=== PATIENT | female | born 1950 | race Caucasian/White ===

== ENCOUNTER 2018-06-19 11:17 | Emergency (ER) | payer MEDICARE, BC ==
[2018-06-19] MEDS ORDERED: Acetaminophen 325 MG Tab ONE (11:31)
[2018-06-19] MEDS ORDERED: Sodium Chloride 0.9% 2,000 ML ONE (11:31)
[2018-06-19] MEDS ORDERED: Sodium Chloride 0.9% 500 ML IV ONE (11:36)
[2018-06-19] MEDS ORDERED: Sodium Chloride 0.9% 1,000 ML IV ONE (11:36)
--- NOTE | 2018-06-19 11:47 | EDM.PDOC ---
ED HPI GENERAL MEDICAL PROBLEM - General Chief Complaint: Fever Stated Complaint: [facility] Time Seen by Provider: 06/19/18 11:30 Source of Information: Reports: Patient, EMS, EMS Notes Reviewed History Limitations: Reports: No Limitations - History of Present Illness INITIAL COMMENTS - FREE TEXT/NARRATIVE: Patient is a 67-year-old female who presents to the ED with concerns of fever with altered mental status per her . EMS was contacted and found the patient to be tachycardic alert with a fever 104F. Upon admission to the emergency room patient is alert oriented and complains of a cough that is productive with intermittent chest pain and abdominal discomfort. Patient has a cholecystostomy tube in place. The tube was placed at [facility] in [place] by Dr. Rhodes. Patient states up until the last few days she 's been doing quite well. She has developed this cough that is productive with some intermittent shortness of breath. Pain to the chest is sharp in nature with coughing. She denies any shortness of breath at rest although she is on oxygen currently. She has a history of stage IV non-Hodgkin's lymphoma initially diagnosed in 2006. Status post radiation therapy in March and April 2017 and chemotherapy through 12/08/2017. Patient with review previous records had pneumonia 02/13/2018 right sided. She was admitted to the hospital through February 27, 2018. She has received a flu vaccination. She sees Dr. Leo [facility] for oncology purposes. She currently denies any nausea or vomiting, constipation, dysuria, rash, dizziness, bloody stool, dark tarry stool, and or diarrhea. She has not been around anybody sick recently. Chest Pain Score (Numeric/FACES): 5 - Related Data Allergies Allergy/AdvReac Type Severity Reaction Status Date / Time No Known Allergies Allergy Verified 06/19/18 11:28 Home Meds: Home Meds Calcium Carbonate/Vitamin D3 [Calcium Carbonate/Vitamin D 1250 MG-200 Unit] 1 tab PO BID 12/15/17 [History] Denosumab [Prolia] 1 injection SUBCUT ASDIRECTED 12/15/17 [History] Folic Acid 1 mg PO DAILY 12/15/17 [History] Gabapentin [Neurontin] 300 mg PO TID 12/15/17 [History] [place]-3/DHA/Epa/Fish Oil [[place] 3 500 Softgel] 3 cap PO DAILY 12/15/17 [History] Omeprazole Magnesium [Prilosec] 20 mg PO DAILY 12/15/17 [History] Ondansetron [Zofran ODT] 8 mg PO Q6HR 12/15/17 [History] Potassium Chloride 20 meq PO DAILY 12/15/17 [History] Promethazine [Phenergan] 0.5 ml TOP Q6HR PRN 12/15/17 [History] Ranitidine [Zantac] 150 mg PO BID 12/15/17 [History] Zolpidem [Ambien] 10 mg PO QPM PRN 12/15/17 [History] oxyCODONE HCl/Acetaminophen [oxyCODONE-Acetaminophen 2.5-325] 1 tab PO Q4HR PRN 12/15/17 [History] predniSONE [Prednisone] 5 mg PO MOWEFR 12/15/17 [History] Bisacodyl 10 mg RC BID PRN #6 supp.rect 12/22/17 [Rx] Docusate Sodium [Colace] 100 mg PO BID PRN #60 cap 12/22/17 [Rx] Dronabinol [Marinol] 2.5 mg PO TIDAC #90 cap 12/22/17 [Rx] Polyethylene Glycol 3350 [MiraLAX] 17 gm PO BID PRN #10 packet 12/22/17 [Rx] Scopolamine [Transderm-Scop] 1.5 mg TRDERM Q72H PRN #5 patch 12/22/17 [Rx] fentaNYL [Duragesic] 12 mcg TRDERM Q72H #5 patch 12/22/17 [Rx] Past Medical History HEENT History: Reports: Impaired Vision Other HEENT History: Wears glasses Respiratory History: Reports: Pneumonia, Recurrent Gastrointestinal History: Reports: GERD, Hiatal Hernia [employer] History: Reports: Musculoskeletal History: Reports: Osteoporosis, RA Neurological History: Reports: Other (See Below) (Postherpetic neuralgia) Hematologic History: Reports: Blood Transfusion(s), Other (See Below) (Factor V Leiden mutation) Oncologic (Cancer) History: Reports: Basal Cell Carcinoma (skin), Non-Hodgkin's Lymphoma (Stage IV, dx'd 2006) Dermatologic History: Reports: Melanoma - Past Surgical History HEENT Surgical History: Reports: Cataract Surgery, Tonsillectomy Cardiovascular Surgical History: Reports: Vascular Surgery (Left Port-A-Cath) Oncologic Surgical History: Reports: Biopsy of Breast (right, benign), Other ( See Below) (Right lymph node bx) Social & Family History - Family History Family Medical History: Noncontributory - Caffeine Use Caffeine Use: Reports: None - Living Situation & Occupation Living situation: Reports: , with Spouse Occupation: Retired ED ROS GENERAL - Review of Systems Review Of Systems: ROS reveals no pertinent complaints other than HPI. - Physical Exam Exam: See Below Exam Limited By: No Limitations General Appearance: Alert, WD/WN, No Apparent Distress, Cachetic Eye Exam: Bilateral Eye: Normal Inspection, PERRL Ears: Hearing Grossly Normal Nose: Normal Inspection Throat/Mouth: Normal Inspection, Normal Oropharynx, Normal Voice, No Airway Compromise Head Exam: Atraumatic, Normocephalic Neck: Normal Inspection, Supple Respiratory/Chest: No Respiratory Distress, No Accessory Muscle Use, Chest Non- Tender, Rhonchi (To bases bilaterally) Cardiovascular: Normal Peripheral Pulses, Tachycardia GI/Abdominal: Normal Bowel Sounds, Soft, No Organomegaly, No Distention, Other ( Cholecystostomy tube right upper quadrant intact draining yellow/greenish fluid. ) Neuro Exam (Abbreviated): Alert, Oriented, CN II-XII Intact, Normal Cognition, No Motor/Sensory Deficits Back Exam: Normal Inspection Extremities: Normal Inspection Psychiatric: Normal Affect, Normal Mood Skin Exam: Dry, Intact, Increased Warmth Course - Vital Signs Last Recorded V/S: Last Vital Signs Temp 104 F H 06/19/18 11:41 Pulse 140 H 06/19/18 11:19 Resp 18 06/19/18 11:19 BP 104/68 06/19/18 11:19 Pulse Ox 97 06/19/18 11:19 - Orders/Labs/Meds Orders: Active Orders 24 hr Category Date Time Status EKG 12 Lead [EKG Documentation Completion] [RC] STAT Care 06/19/18 11:34 Active Abdomen 1V Flat [CR] Stat Exams 06/19/18 11:34 Taken Chest 1V Frontal [CR] Stat Exams 06/19/18 11:34 Taken CULTURE BLOOD [BC] Stat Lab 06/19/18 11:43 Received CULTURE BLOOD [BC] Stat Lab 06/19/18 12:30 Received PROCALCITONIN [REF] Stat Lab 06/19/18 12:30 Received STREP PNEUMONIAE ANTIGEN [MREF] Stat Lab 06/19/18 12:10 Received Norepinephrine [Levophed] 4 mg Med 06/19/18 13:00 Active Dextrose 5% in Water 246 ml IV TITRATE Sodium Chloride 0.9% [Normal Saline] 1,000 ml Med 06/19/18 13:00 Active IV ASDIRECTED Blood Culture x2 Reflex Set [OM.PC] Stat Oth 06/19/18 11:34 Ordered Medication Orders Norepinephrine Bitartrate 4 mg (/ Dextrose/Water) 250 mls @ 11.25 mls/hr IV TITRATE DEANNE; Protocol Last Admin: 06/19/18 13:12 Dose: 3 mcg/min, 11.25 mls/hr Sodium Chloride (Normal Saline) 1,000 mls @ 999 mls/hr IV ASDIRECTED DEANNE Last Admin: 06/19/18 13:11 Dose: 999 mls/hr Labs: Laboratory Tests 06/19/18 06/19/18 06/19/18 Range/Units 12:10 12:30 12:30 WBC 0.91 L* (3.98-10.04) K/mm3 RBC 3.03 L (3.98-5.22) M/mm3 Hgb 8.5 L (11.2-15.7) gm/L Hct 26.9 L (34.1-44.9) % MCV 88.8 (79.4-94.8) fl MCH 28.1 (25.6-32.2) pg MCHC 31.6 L (32.2-35.5) g/dl RDW Std Deviation 48.7 H (36.4-46.3) fL Plt Count 222 (182-369) K/mm3 MPV 9.3 L (9.4-12.3) fl Neutrophils % (Manual) 10 L (40-60) % Band Neutrophils % 8 (0-10) % Lymphocytes % (Manual) 48 H (20-40) % Atypical Lymphs % 0 % Monocytes % (Manual) 33 H (2-10) % Eosinophils % (Manual) 0 L (0.7-5.8) % Basophils % (Manual) 0 L (0.1-1.2) Metamyelocytes % 1 Platelet Estimate Adequate Hypochromasia Moderate Microcytosis Few Macrocytosis Moderate RBC Morph Comment Not Reportable Sodium 134 L (136-145) mEq/L Potassium 3.5 (3.5-5.1) mEq/L Chloride 97 L (98-107) mEq/L Carbon Dioxide 24 (21-32) mEq/L Anion Gap 16.5 H (5-15) BUN 15 (7-18) mg/dL Creatinine 1.0 (0.55-1.02) mg/dL Est Cr Clr Drug Dosing 45.57 mL/min Estimated GFR (MDRD) 55 (>60) mL/min BUN/Creatinine Ratio 15.0 (14-18) Glucose 99 (80-115) mg/dL Lactic Acid (0.4-2.0) mmol/L Calcium 7.7 L (8.5-10.1) mg/dL Total Bilirubin 0.7 (0.2-1.0) mg/dL AST 27 (15-37) U/L ALT 15 (14-59) U/L Alkaline Phosphatase 71 (46-116) U/L Troponin I < 0.017 (0.00-0.056) ng/mL C-Reactive Protein 22.2 H* (<1.0) mg/dL Total Protein 5.4 L (6.4-8.2) g/dl Albumin 2.4 L (3.4-5.0) g/dl Globulin 3.0 gm/dL Albumin/Globulin Ratio 0.8 L (1-2) Lipase 54 L (73-393) U/L Urine Color Yellow (Yellow) Urine Appearance Clear (Clear) Urine pH 7.0 (5.0-8.0) Ur Specific [place] 1.015 (1.005-1.030) Urine Protein 2+ H (Negative) Urine Glucose (UA) Negative (Negative) Urine Ketones Negative (Negative) Urine Occult Blood 1+ H (Negative) Urine Nitrite Negative (Negative) Urine Bilirubin Negative (Negative) Urine Urobilinogen 0.2 (0.2-1.0) Ur Leukocyte Esterase Negative (Negative) Urine RBC 0-5 (0-5) /hpf Urine WBC 0-5 (0-5) /hpf Ur Epithelial Cells 0-5 (0-5) /hpf Urine Bacteria Not seen (FEW) /hpf Urine Mucus Not seen (FEW) /hpf Mycoplasma pneumon IgM Positive H (NEGATIVE) 06/19/18 Range/Units 12:30 WBC (3.98-10.04) K/mm3 RBC (3.98-5.22) M/mm3 Hgb (11.2-15.7) gm/L Hct (34.1-44.9) % MCV (79.4-94.8) fl MCH (25.6-32.2) pg MCHC (32.2-35.5) g/dl RDW Std Deviation (36.4-46.3) fL Plt Count (182-369) K/mm3 MPV (9.4-12.3) fl Neutrophils % (Manual) (40-60) % Band Neutrophils % (0-10) % Lymphocytes % (Manual) (20-40) % Atypical Lymphs % % Monocytes % (Manual) (2-10) % Eosinophils % (Manual) (0.7-5.8) % Basophils % (Manual) (0.1-1.2) Metamyelocytes % Platelet Estimate Hypochromasia Microcytosis Macrocytosis RBC Morph Comment Sodium (136-145) mEq/L Potassium (3.5-5.1) mEq/L Chloride (98-107) mEq/L Carbon Dioxide (21-32) mEq/L Anion Gap (5-15) BUN (7-18) mg/dL Creatinine (0.55-1.02) mg/dL Est Cr Clr Drug Dosing mL/min Estimated GFR (MDRD) (>60) mL/min BUN/Creatinine Ratio (14-18) Glucose (80-115) mg/dL Lactic Acid 1.2 (0.4-2.0) mmol/L Calcium (8.5-10.1) mg/dL Total Bilirubin (0.2-1.0) mg/dL AST (15-37) U/L ALT (14-59) U/L Alkaline Phosphatase (46-116) U/L Troponin I (0.00-0.056) ng/mL C-Reactive Protein (<1.0) mg/dL Total Protein (6.4-8.2) g/dl Albumin (3.4-5.0) g/dl Globulin gm/dL Albumin/Globulin Ratio (1-2) Lipase (73-393) U/L Urine Color (Yellow) Urine Appearance (Clear) Urine pH (5.0-8.0) Ur Specific [place] (1.005-1.030) Urine Protein (Negative) Urine Glucose (UA) (Negative) Urine Ketones (Negative) Urine Occult Blood (Negative) Urine Nitrite (Negative) Urine Bilirubin (Negative) Urine Urobilinogen (0.2-1.0) Ur Leukocyte Esterase (Negative) Urine RBC (0-5) /hpf Urine WBC (0-5) /hpf Ur Epithelial Cells (0-5) /hpf Urine Bacteria (FEW) /hpf Urine Mucus (FEW) /hpf Mycoplasma pneumon IgM (NEGATIVE) Meds: Medications Generic Name Dose Route Start Last Admin Trade Name Freq PRN Reason Stop Dose Admin Norepinephrine Bitartrate 4 mg 250 mls @ 11.25 mls/hr 06/19/18 13:00 13:12 / Dextrose/Water IV 3 mcg/min TITRATE DEANNE 11.25 mls/hr Administration Protocol 3 MCG/MIN Sodium Chloride 1,000 mls @ 999 mls/hr 06/19/18 13:00 06/19/18 13:11 Normal Saline IV 999 mls/hr ASDIRECTED DEANNE Administration Discontinued Medications Generic Name Dose Route Start Last Admin Trade Name Freq PRN Reason Stop Dose Admin Acetaminophen Confirm 06/19/18 11:31 06/19/18 11:41 Tylenol Administered 06/19/18 11:32 975 mg Dose Administration 975 mg .ROUTE .STK-MED ONE Sodium Chloride Confirm 06/19/18 11:31 06/19/18 12:19 Normal Saline Administered 06/19/18 11:32 Not Given Dose 2,000 mls @ as directed .ROUTE .STK-MED ONE Sodium Chloride 1,000 mls @ 999 mls/hr 06/19/18 11:36 06/19/18 11:41 Normal Saline IV 06/19/18 12:36 999 mls/hr ONETIME ONE Administration Sodium Chloride 500 mls @ 250 mls/hr 06/19/18 11:36 06/19/18 15:09 Normal Saline IV 06/19/18 13:35 250 mls/hr .BOLUS ONE Administration Piperacillin Sod/Tazobactam 100 mls @ 200 mls/hr 06/19/18 12:54 06/19/18 13: 19 Sod 4.5 gm/ Sodium Chloride IV 06/19/18 13:23 200 mls/hr ONETIME ONE Administration Vancomycin HCl 1 gm/ Sodium 250 mls @ 250 mls/hr 06/19/18 13:30 06/19/18 14: 04 Chloride IV 06/19/18 14:29 250 mls/hr ONETIME ONE Administration Sodium Chloride Confirm 06/19/18 13:10 06/19/18 13:40 Normal Saline Administered 06/19/18 13:11 Not Given Dose 100 mls @ as directed .ROUTE .STK-MED ONE Vancomycin HCl 0 dose 06/19/18 13:00 Pharmacy To Dose - Vancomycin .XX 06/19/18 14:00 ASDIRECTED [facility] - Re-Assessments/Exams Free Text/Narrative Re-Assessment/Exam: Upon examination patient is alert and she is oriented 3. Blood pressure 104/68 , heart rate 135, temperature 104.3 rectally, respiratory rate 16. Patient meets SIRs criteria suspected cause of infection is either pneumonia or ascending cholangitis. Full septic workup has been initiated. With blood cultures 2, lactic acid, lab work, UA, chest x-ray, abdominal x-ray, EKG, and troponin. Medical records recently obtained from [facility]. Discharge summary from June 10, 2018. Patient had thought to have acalculus cholecystitis thus cholecystomy tube was placed. On followup it was noticed that she was having a lot of drainage from the cholecystostomy tube. They had concerns the patient had obstruction of the bile duct. 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 The common bile duct could not be cannulated. Since patient spent a lot of time down in the procedure she was admitted for observation. Chest x-ray indicated right lower/middle lobe pneumonia. Waiting for labs to come back to initiate antibiotic therapy. Abdominal xray indicated cholecystomy tube in place unclear if proper position or not. Images Reviewed with Dr. Sharma agrees with findings on x-ray of the chest and abdominal x-ray. EKG sinus tachycardia at 117. Per who is present states patient is a full code. He request patient be transferred back to [facility] and [place] since that's where she gets majority of her care. Labs reviewed: White blood cell count 0.91, hemoglobin 8.5 stable, platelet count 222, neutrophils 10, bands 8, lymphocytes percentage 48, monocyte percentage 33, sodium 134, potassium 3.5, CO2 24, AG 16.5, creatinine 1.0, glucose 99, lactic acid 1.2, troponin normal, CRP 22.2, lipase 54. UA indicated protein 2+, occult blood 1+, no findings concerning for infection. Mycoplasma pneumonia positive. 06/19/18 12:52 Reassessment, blood pressure 81/46 with a heart rate 117. Second IV bag of saline has been started. In addition will start Levophed 3 mcq a minute. I have ordered Zosyn and vancomycin to pharmacy to dose. 06/19/18 13:28 Second liter of IV fluids are in. Patient's heart rate 107 blood pressure has been ranging from 89/50-98 systolic.Map of 62. 1350 reassessment, patient is alert and oriented 3. She denies any complaints. Blood pressure 95/58 with a heart rate of 104. SPO2 97% on L/m of O2 via in as a cannula. I have offered to transfer the patient to [place]. Patient is adamant about staying here in the [facility]. I have informed the patient and family members that I would need to speak with Dr. Tse who will be the accepting hospitalist. 06/19/18 13:[address] Tse plastics seasoner operator hospitalists. He will see the patient in the E.D. Dr. Tse has spoken with the family. Family and patient requests transfer to [place]. I have asked for levophed to be titrated up to maintain map of 65. 06/19/[address] Braden ED provider at [facility]. He has accepted the patient. Nini has been notified. All paperwork for transfer has been completed. Departure - Departure Time of Disposition: 15:04 Disposition: DC/Tfer to Acute Hospital 02 Condition: Critical Clinical Impression: Septic shock, Severe sepsis, Immunocompromised state Pneumonia Qualifiers: Pneumonia type: due to Pseudomonas Laterality: left Lung location: unspecified part of lung Qualified Code(s): J15.1 - Pneumonia due to Pseudomonas Neutropenic Qualifiers: Neutropenia type: secondary to cancer chemotherapy Qualified Code(s): D70.1 - Agranulocytosis secondary to cancer chemotherapy - Discharge Information Referrals: Elkin Venegas MD [Primary Care Provider] - Forms: ED Department Discharge - My Orders Last 24 Hours: My Active Orders 06/19/18 11:34 EKG 12 Lead [EKG Documentation Completion] [RC] STAT Abdomen 1V Flat [CR] Stat Chest 1V Frontal [CR] Stat Blood Culture x2 Reflex Set [OM.PC] Stat 06/19/18 11:43 CULTURE BLOOD [BC] Stat 06/19/18 12:10 STREP PNEUMONIAE ANTIGEN [MREF] Stat 06/19/18 12:30 CULTURE BLOOD [BC] Stat PROCALCITONIN [REF] Stat 06/19/18 13:00 Norepinephrine [Levophed] 4 mg Dextrose 5% in Water 246 ml IV TITRATE Sodium Chloride 0.9% [Normal Saline] 1,000 ml IV ASDIRECTED - Assessment/Plan Last 24 Hours: My Active Orders 06/19/18 11:34 EKG 12 Lead [EKG Documentation Completion] [RC] STAT Abdomen 1V Flat [CR] Stat Chest 1V Frontal [CR] Stat Blood Culture x2 Reflex Set [OM.PC] Stat 06/19/18 11:43 CULTURE BLOOD [BC] Stat 06/19/18 12:10 STREP PNEUMONIAE ANTIGEN [MREF] Stat 06/19/18 12:30 CULTURE BLOOD [BC] Stat PROCALCITONIN [REF] Stat 06/19/18 13:00 Norepinephrine [Levophed] 4 mg Dextrose 5% in Water 246 ml IV TITRATE Sodium Chloride 0.9% [Normal Saline] 1,000 ml IV ASDIRECTED
[2018-06-19] MEDS ORDERED: Piperacillin/Tazobactam 4.5 GM in Sodium Chloride 0.9% 100 ML IV ONE (12:54)
[2018-06-19] MEDS ORDERED: Norepinephrine 4 MG in Dextrose 5% in Water 246 ML IV SCH ×2 (13:00)
[2018-06-19] MEDS ORDERED: Sodium Chloride 0.9% 1,000 ML IV SCH (13:00)
[2018-06-19] MEDS ORDERED: Sodium Chloride 0.9% 100 ML ONE (13:10)
--- NOTE | 2018-06-20 08:46 | CR ---
Abdomen: Supine view of the abdomen was obtained. Comparison: No prior abdominal imaging. Pigtail catheter is seen on the right side. Please correlate as to etiology. Small tubing is seen overlying the L3-L4 disc space of uncertain etiology and location. Bowel gas pattern is normal. Degenerative change is noted at L4-L5. Mild compression deformity noted of T12 which is likely old. Impression: 1. Tubes and catheters as described above. Other incidental findings. Diagnostic code #2
--- NOTE | 2018-06-20 08:46 | CR ---
Chest: Portable view of the chest was obtained. Comparison: Prior chest x-ray of 03/10/18. Slightly more prominent right hilum is seen when compared to previous exam. Slight perihilar interstitial change is noted on the right side. Left lung is clear. Heart size at the upper limits of normal. Tortuous thoracic aorta is seen. Left-sided port is noted. Surgical clips seen within the right axillary region. Impression: 1. Slightly more prominent right hilum when compared to prior exam. Difficult to exclude adenopathy. Chest CT recommended to further evaluate. This chest CT should be performed with contrast. 2. Increasing interstitial change within the right perihilar region possibly due to lymphangitic metastasis or bronchitis. 3. Other incidental findings. Diagnostic code #9
== END 2018-06-19 15:20 ==
LOC: JD.ED 11:17
DX: A41.52 Sepsis due to Pseudomonas (principal); R65.21 Severe sepsis with septic shock; J15.1 Pneumonia due to Pseudomonas; D70.1 Agranulocytosis secondary to cancer chemotherapy; K21.9 Gastro-esophageal reflux disease without esophagitis; Z79.899 Other long term (current) drug therapy
CPT/HCPCS: 36415; 71045; 74018; 80053; 81001; 83605; 83690; 84145; 84484; 85007; 85027; 86140; 86738; 87040; 87804; 87899; 93005; 96361; 96365; 96366; 96367; 99285; A9270; J2543; J3370; J7030; J7040; J7050; J7060

== ENCOUNTER 2018-07-13 15:02 | Emergency (ER) | payer MEDICARE, BC ==
[2018-07-13] MEDS ORDERED: Sodium Chloride 0.9% 10 ML Syringe FLUSH PRN (15:37)
[2018-07-13] MEDS ORDERED: Albuterol/Ipratropium 3.0-0.5 MG/3 ML Neb Soln NEB ONE ×2 (15:56→17:50)
[2018-07-13] MEDS ORDERED: cefTRIAXone 2 GM in Sodium Chloride 0.9% 100 ML IV ONE (16:17)
--- NOTE | 2018-07-13 16:57 | EDM.PDOC ---
ED HPI GENERAL MEDICAL PROBLEM - General Chief Complaint: Respiratory Problem Stated Complaint: DIFFICULTY MAINTAINIG O2 LEVEL Time Seen by Provider: 07/13/18 15:26 Source of Information: Reports: Patient History Limitations: Reports: No Limitations - History of Present Illness INITIAL COMMENTS - FREE TEXT/NARRATIVE: The patient presents with hypoxia. The patient was recently discharged from [facility] earlier this week. She was seen here on the 19 of June for pneumonia and she was neutropenic. She has a history of lymphoma. Her last chemo was in November. She was sent to [facility] in [place] and she was there for a couple of weeks She had her gallbladder removed, a cardiac stent and a scope for a GI bleed. She was sent home on home oxygen. She is being cared for by family and home health. Her oxygen saturations were low at 2L today at 86%. She has no fever or chills. She has a slight cough. She has no chest pain. She feels short of breath. She has no abdominal pain, nausea or vomiting She has some edema in her legs and that is new. She has a history of DVT. Onset: Gradual Duration: Hour(s): Severity: Moderate Improves with: Reports: None Worsens with: Reports: None Associated Symptoms: Reports: Cough, Shortness of Breath. Denies: Fever/Chills , Headaches, Nausea/Vomiting Generalized Pain Score (Numeric/FACES): 6 - Related Data Allergies Allergy/AdvReac Type Severity Reaction Status Date / Time No Known Allergies Allergy Verified 07/13/18 15:23 Home Meds: Home Meds Calcium Carbonate/Vitamin D3 [Calcium Carbonate/Vitamin D 1250 MG-200 Unit] 1 tab PO BID 12/15/17 [History] Denosumab [Prolia] 1 injection SUBCUT ASDIRECTED 12/15/17 [History] Folic Acid 1 mg PO DAILY 12/15/17 [History] Gabapentin [Neurontin] 300 mg PO TID 12/15/17 [History] [place]-3/DHA/Epa/Fish Oil [[place] 3 500 Softgel] 3 cap PO DAILY 12/15/17 [History] Omeprazole Magnesium [Prilosec] 20 mg PO DAILY 12/15/17 [History] Ondansetron [Zofran ODT] 8 mg PO Q6HR 12/15/17 [History] Potassium Chloride 20 meq PO DAILY 12/15/17 [History] Promethazine [Phenergan] 0.5 ml TOP Q6HR PRN 12/15/17 [History] Ranitidine [Zantac] 150 mg PO BID 12/15/17 [History] Zolpidem [Ambien] 10 mg PO QPM PRN 12/15/17 [History] oxyCODONE HCl/Acetaminophen [oxyCODONE-Acetaminophen 2.5-325] 1 tab PO Q4HR PRN 12/15/17 [History] predniSONE [Prednisone] 5 mg PO MOWEFR 12/15/17 [History] Bisacodyl 10 mg RC BID PRN #6 supp.rect 12/22/17 [Rx] Docusate Sodium [Colace] 100 mg PO BID PRN #60 cap 12/22/17 [Rx] Dronabinol [Marinol] 2.5 mg PO TIDAC #90 cap 12/22/17 [Rx] Polyethylene Glycol 3350 [MiraLAX] 17 gm PO BID PRN #10 packet 12/22/17 [Rx] Scopolamine [Transderm-Scop] 1.5 mg TRDERM Q72H PRN #5 patch 12/22/17 [Rx] fentaNYL [Duragesic] 12 mcg TRDERM Q72H #5 patch 12/22/17 [Rx] Past Medical History HEENT History: Reports: Impaired Vision Other HEENT History: Wears glasses Respiratory History: Reports: Pneumonia, Recurrent Gastrointestinal History: Reports: GERD, Hiatal Hernia TOW MATE History: Reports: Musculoskeletal History: Reports: Osteoporosis, RA Neurological History: Reports: Other (See Below) Hematologic History: Reports: Blood Transfusion(s), Other (See Below) Oncologic (Cancer) History: Reports: Basal Cell Carcinoma, Non-Hodgkin's Lymphoma Dermatologic History: Reports: Melanoma - Past Surgical History HEENT Surgical History: Reports: Cataract Surgery, Tonsillectomy Cardiovascular Surgical History: Reports: Vascular Surgery GI Surgical History: Reports: Cholecystectomy, Other (See Below) Other GI Surgeries/Procedures: gall bladder stent Female Surgical History: Reports: Breast Biopsy Oncologic Surgical History: Reports: Biopsy of Breast, Other (See Below) Social & Family History - Family History Family Medical History: Noncontributory - Caffeine Use Caffeine Use: Reports: None - Living Situation & Occupation Living situation: Reports: , with Spouse Occupation: Retired ED ROS GENERAL - Review of Systems Review Of Systems: See Below Constitutional: Reports: No Symptoms HEENT: Reports: No Symptoms Respiratory: Reports: Shortness of Breath, Cough Cardiovascular: Reports: No Symptoms Endocrine: Reports: No Symptoms GI/Abdominal: Reports: No Symptoms : Reports: No Symptoms Musculoskeletal: Reports: No Symptoms ED EXAM, GENERAL - Physical Exam Exam: See Below Exam Limited By: No Limitations General Appearance: Alert, No Apparent Distress Ears: Normal External Exam Nose: Normal Inspection Head: Atraumatic, Normocephalic Neck: Normal Inspection Respiratory/Chest: No Respiratory Distress, Decreased Breath Sounds, Wheezing ( mild) Cardiovascular: Regular Rate, Rhythm, No Edema, No Murmur GI/Abdominal: Soft, Non-Tender, No Organomegaly, No Mass Back Exam: Normal Inspection Extremities: Normal Inspection EKG INTERPRETATION EKG Date: 07/13/18 Time: 15:54 Rhythm: NSR Rate (Beats/Min): 92 [place]: Normal P-Wave: Present QRS: Normal ST-T: Normal QT: Normal Course - Vital Signs Last Recorded V/S: Last Vital Signs Temp 97.5 F 07/13/18 15:11 Pulse 94 07/13/18 15:11 Resp 18 07/13/18 15:11 BP 135/88 07/13/18 15:11 Pulse Ox 92 L 07/13/18 15:57 - Orders/Labs/Meds Orders: Active Orders 24 hr Category Date Time Status Cardiac Monitoring [RC] . DIRECTED Care 07/13/18 15:37 Active EKG Documentation Completion [RC] STAT Care 07/13/18 15:37 Active Oxygen Therapy [RC] PRN Care 07/13/18 15:37 Active Peripheral IV Care [RC] . DIRECTED Care 07/13/18 15:38 Active RT Aerosol Therapy [RC] ASDIRECTED Care 07/13/18 15:57 Active Chest 1V Frontal [CR] Stat Exams 07/13/18 15:38 Taken CULTURE BLOOD [BC] Stat Lab 07/13/18 16:00 Received CULTURE BLOOD [BC] Stat Lab 07/13/18 16:20 Received Azithromycin [Zithromax] 500 mg Med 07/13/18 17:18 Active Sodium Chloride 0.9% [Normal Saline] 250 ml IV ONETIME Sodium Chloride 0.9% [Normal Saline] 1,620 ml Med 07/13/18 17:04 Active IV ONETIME Sodium Chloride 0.9% [Saline Flush] Med 07/13/18 15:37 Active 10 ml FLUSH ASDIRECTED PRN Blood Culture x2 Reflex Set [OM.PC] Stat Ot 07/13/18 15:38 Ordered Peripheral IV Insertion Adult [OM.PC] Stat Ot 07/13/18 15:37 Ordered Medication Orders Sodium Chloride (Normal Saline) 1,620 mls @ 1,000 mls/hr IV ONETIME ONE Stop: 07/13/18 18:41 Last Admin: 07/13/18 17:10 Dose: 1,000 mls/hr Azithromycin 500 mg/ Sodium (Chloride) 250 mls @ 250 mls/hr IV ONETIME ONE Stop: 07/13/18 18:17 Sodium Chloride (Saline Flush) 10 ml FLUSH ASDIRECTED PRN PRN Reason: Keep Vein Open Last Admin: 07/13/18 16:41 Dose: 10 ml Labs: Laboratory Tests 07/13/18 07/13/18 07/13/18 Range/Units 16:20 16:20 16:20 WBC 21.79 H (3.98-10.04) K/mm3 RBC 3.40 L (3.98-5.22) M/mm3 Hgb 10.2 L (11.2-15.7) gm/L Hct 33.9 L (34.1-44.9) % MCV 99.7 H (79.4-94.8) fl MCH 30.0 (25.6-32.2) pg MCHC 30.1 L (32.2-35.5) g/dl RDW Std Deviation 60.3 H (36.4-46.3) fL Plt Count 111 L (182-369) K/mm3 MPV 11.4 (9.4-12.3) fl Neut % (Auto) 94.3 H (34.0-71.1) % Lymph % (Auto) 2.7 L (19.3-51.7) % [place] % (Auto) 2.1 L (4.7-12.5) % Eos % (Auto) 0.1 L (0.7-5.8) Baso % (Auto) 0.0 L (0.1-1.2) % Neut # (Auto) 20.54 H (1.56-6.13) K/mm3 Lymph # (Auto) 0.59 L (1.18-3.74) K/mm3 [place] # (Auto) 0.46 H (0.24-0.36) K/mm3 Eos # (Auto) 0.02 L (0.04-0.36) K/mm3 Baso # (Auto) 0.01 (0.01-0.08) K/mm3 Manual Slide Review Abnormal smear Sodium 139 (136-145) mEq/L Potassium 5.9 H (3.5-5.1) mEq/L Chloride 101 (98-107) mEq/L Carbon Dioxide 30 (21-32) mEq/L Anion Gap 13.9 (5-15) BUN 26 H (7-18) mg/dL Creatinine 1.2 H (0.55-1.02) mg/dL Est Cr Clr Drug Dosing 39.09 mL/min Estimated GFR (MDRD) 45 (>60) mL/min BUN/Creatinine Ratio 21.7 H (14-18) Glucose 111 (80-115) mg/dL Lactic Acid (0.4-2.0) mmol/L Calcium 8.9 (8.5-10.1) mg/dL Total Bilirubin 0.6 (0.2-1.0) mg/dL AST 279 H (15-37) U/L ALT 269 H (14-59) U/L Alkaline Phosphatase 398 H (46-116) U/L Troponin I 0.042 (0.00-0.056) ng/mL NT-Pro-B Natriuret Pep > 44349 H (0-125) pg/mL Total Protein 5.7 L (6.4-8.2) g/dl Albumin 2.8 L (3.4-5.0) g/dl Globulin 2.9 gm/dL Albumin/Globulin Ratio 1.0 (1-2) Mycoplasma pneumon IgM (NEGATIVE) 07/13/18 07/13/18 Range/Units 16:20 16:20 WBC (3.98-10.04) K/mm3 RBC (3.98-5.22) M/mm3 Hgb (11.2-15.7) gm/L Hct (34.1-44.9) % MCV (79.4-94.8) fl MCH (25.6-32.2) pg MCHC (32.2-35.5) g/dl RDW Std Deviation (36.4-46.3) fL Plt Count (182-369) K/mm3 MPV (9.4-12.3) fl Neut % (Auto) (34.0-71.1) % Lymph % (Auto) (19.3-51.7) % [place] % (Auto) (4.7-12.5) % Eos % (Auto) (0.7-5.8) Baso % (Auto) (0.1-1.2) % Neut # (Auto) (1.56-6.13) K/mm3 Lymph # (Auto) (1.18-3.74) K/mm3 [place] # (Auto) (0.24-0.36) K/mm3 Eos # (Auto) (0.04-0.36) K/mm3 Baso # (Auto) (0.01-0.08) K/mm3 Manual Slide Review Sodium (136-145) mEq/L Potassium (3.5-5.1) mEq/L Chloride (98-107) mEq/L Carbon Dioxide (21-32) mEq/L Anion Gap (5-15) BUN (7-18) mg/dL Creatinine (0.55-1.02) mg/dL Est Cr Clr Drug Dosing mL/min Estimated GFR (MDRD) (>60) mL/min BUN/Creatinine Ratio (14-18) Glucose (80-115) mg/dL Lactic Acid 2.3 H (0.4-2.0) mmol/L Calcium (8.5-10.1) mg/dL Total Bilirubin (0.2-1.0) mg/dL AST (15-37) U/L ALT (14-59) U/L Alkaline Phosphatase (46-116) U/L Troponin I (0.00-0.056) ng/mL NT-Pro-B Natriuret Pep (0-125) pg/mL Total Protein (6.4-8.2) g/dl Albumin (3.4-5.0) g/dl Globulin gm/dL Albumin/Globulin Ratio (1-2) Mycoplasma pneumon IgM Negative (NEGATIVE) Meds: Medications Generic Name Dose Route Start Last Admin Trade Name Freq PRN Reason Stop Dose Admin Sodium Chloride 1,620 mls @ 1,000 mls/hr 07/13/18 17:04 07/13/18 17:10 Normal Saline IV 07/13/18 18:41 1,000 mls/hr ONETIME ONE Administration Azithromycin 500 mg/ Sodium 250 mls @ 250 mls/hr 07/13/18 17:18 Chloride IV 07/13/18 18:17 ONETIME ONE Sodium Chloride 10 ml 07/13/18 15:37 07/13/18 16:41 Saline Flush FLUSH 10 ml ASDIRECTED PRN Administration Keep Vein Open Discontinued Medications Generic Name Dose Route Start Last Admin Trade Name Freq PRN Reason Stop Dose Admin Albuterol/Ipratropium 3 ml 07/13/18 15:56 07/13/18 16:44 Duoneb 3.0-0.5 Mg/3 Ml NEB 07/13/18 15:57 3 ml ONETIME ONE Administration Ceftriaxone Sodium 2 gm/ 100 mls @ 200 mls/hr 07/13/18 16:17 07/13/18 16:39 Sodium Chloride IV 07/13/18 16:46 200 mls/hr ONETIME ONE Administration - Re-Assessments/Exams Free Text/Narrative Re-Assessment/Exam: 07/13/18 17:01 I ordered oxygen, duoneb, IV saline lock, EKG, CXR, labs, blood cultures and lactic acid. Her EKG shows a NSR with no acute changes. Her CXR shows bilateral infiltrates. 07/13/18 17:05 Her WBC was elevated at 21.79. Her Hgb was low at 10.2. Her platelets were low at 111. Her K was elevated at 5.9. Her creatinine was elevated at 1.2. Her lactic acid was elevated at 2.3. Her AST is elevated at 279. Her ALT was elevated at 269. Her ALK Phos is elevated at 398. Her troponin is negative. It appears she has pneumonia and sepsis. I ordered rocephin 2 grams IV and a fluid bolus of 30ml/kg. Her K is elevated at 5.9. I did give her a breathing treatment and she is getting fluids. That should help move the potassium out of the intervascular space. 07/13/18 17:43 Her BNP came back elevated at >35,000. I slowed down the fluids to 100ml/hr. 07/13/18 17:57 I feel she needs to be admitted. I called Dr Vargas and she did not feel comfortable keeping her here. I called [facility] and talked with Dr Hou with the hospitalist service and she accepted the patient. I ordered another duoneb. Departure - Departure Time of Disposition: 18:00 Disposition: DC/Tfer to [facility] 02 Condition: Serious Clinical Impression: Hypoxia, Hyperkalemia, Elevated brain natriuretic peptide (BNP) level Bilateral pneumonia Qualifiers: Pneumonia type: due to unspecified organism Lung location: unspecified part of lung Qualified Code(s): J18.9 - Pneumonia, unspecified organism Lymphoma Qualifiers: Lymphoma type: unspecified type Lymphoma site: unspecified region Qualified Code(s): C85.90 - Non-Hodgkin lymphoma, unspecified, unspecified site Sepsis Qualifiers: Sepsis type: sepsis due to unspecified organism Qualified Code(s): A41.9 - Sepsis, unspecified organism - Discharge Information Referrals: Guillaume Gudino MD [Primary Care Provider] - Forms: ED Department Discharge - My Orders Last 24 Hours: My Active Orders 07/13/18 15:37 Cardiac Monitoring [RC] . DIRECTED EKG Documentation Completion [RC] STAT Oxygen Therapy [RC] PRN Sodium Chloride 0.9% [Saline Flush] 10 ml FLUSH ASDIRECTED PRN Peripheral IV Insertion Adult [OM.PC] Stat 07/13/18 15:38 Peripheral IV Care [RC] . DIRECTED Chest 1V Frontal [CR] Stat Blood Culture x2 Reflex Set [OM.PC] Stat 07/13/18 15:57 RT Aerosol Therapy [RC] ASDIRECTED 07/13/18 16:00 CULTURE BLOOD [BC] Stat 07/13/18 16:20 CULTURE BLOOD [BC] Stat 07/13/18 17:04 Sodium Chloride 0.9% [Normal Saline] 1,620 ml IV ONETIME 07/13/18 17:18 Azithromycin [Zithromax] 500 mg Sodium Chloride 0.9% [Normal Saline] 250 ml IV ONETIME - Assessment/Plan Last 24 Hours: My Active Orders 07/13/18 15:37 Cardiac Monitoring [RC] . DIRECTED EKG Documentation Completion [RC] STAT Oxygen Therapy [RC] PRN Sodium Chloride 0.9% [Saline Flush] 10 ml FLUSH ASDIRECTED PRN Peripheral IV Insertion Adult [OM.PC] Stat 07/13/18 15:38 Peripheral IV Care [RC] . DIRECTED Chest 1V Frontal [CR] Stat Blood Culture x2 Reflex Set [OM.PC] Stat 07/13/18 15:57 RT Aerosol Therapy [RC] ASDIRECTED 07/13/18 16:00 CULTURE BLOOD [BC] Stat 07/13/18 16:20 CULTURE BLOOD [BC] Stat 07/13/18 17:04 Sodium Chloride 0.9% [Normal Saline] 1,620 ml IV ONETIME 07/13/18 17:18 Azithromycin [Zithromax] 500 mg Sodium Chloride 0.9% [Normal Saline] 250 ml IV ONETIME
[2018-07-13] MEDS ORDERED: Azithromycin 500 MG in Sodium Chloride 0.9% 250 ML IV ONE (17:18)
[2018-07-13] MEDS ORDERED: Ondansetron 4 MG/2 ML SDV IVPUSH ONE (17:59)
[2018-07-13] MEDS ORDERED: diphenhydrAMINE 50 MG/ML SDV IVPUSH STA (18:19)
--- NOTE | 2018-07-14 07:01 | CR ---
Chest: Portable view of the chest was obtained. Comparison: Prior chest x-ray of 06/19/18. Increased density is identified throughout both sides of the chest. Small bilateral pleural effusions are seen. Heart size is not enlarged. Infusion port is seen. Surgical clips are seen within the right axillary region. Bony structures are grossly intact. Impression: 1. Diffuse increased density within both sides of chest with small bilateral pleural effusions. Differential includes pulmonary edema due to acute cardiac event as well as diffuse pneumonia. 2. Other incidental findings. Diagnostic code #3
== END 2018-07-13 18:40 ==
LOC: JD.ED 15:02
DX: A41.9 Sepsis, unspecified organism (principal); J18.9 Pneumonia, unspecified organism; R09.02 Hypoxemia; E87.5 Hyperkalemia; C85.90 Non-Hodgkin lymphoma, unspecified, unspecified site; K21.9 Gastro-esophageal reflux disease without esophagitis; Z79.899 Other long term (current) drug therapy
CPT/HCPCS: 36415; 71045; 80053; 83605; 83880; 84484; 85025; 86738; 87040; 93005; 94640; 96361; 96365; 96367; 96375; 99285; J0456; J0696; J1200; J2405; J7030; J7040; J7050; 93010; J7620-GY